=== PATIENT | female | born 2000 | race Caucasian/White ===

== ENCOUNTER 2020-04-18 15:44 | Emergency (ER) | payer SELFPAY ==
--- NOTE | 2020-04-18 17:11 | ER Document Report ---
ED Medical Screen (RME) - General Chief Complaint: Urinary Frequency Stated Complaint: ABDOMINAL PAIN,PAINFUL URINATION Time Seen by Provider: 04/18/20 17:10 Mode of Arrival: Ambulatory Information source: Patient Notes: 19-year-old female presented to ED for complaint of vaginal discharge, pelvic pain with intercourse, burning frequency and urgency with urination. She states this is been going on the vaginal discharge x3 days the burning frequency and urgency with urine x2 days. She states the pain with intercourse is getting worse over the last day or so. She states she has had 2 or 3 UTIs in the last year. She states she does not smoke drink or use any drugs. Patient has been given instructions for self swabbing for gonorrhea chlamydia and wet mount and instructions for obtaining a urinalysis. I have greeted and performed a rapid initial assessment of this patient. A comprehensive ED assessment and evaluation of the patient, analysis of test results and completion of medical decision making process will be conducted by an additional ED providers. - Related Data Allergies/Adverse Reactions: No Known Allergies Allergy (Verified 04/18/20 16:58) Past Medical History - Social History Drug Abuse: Marijuana Physical Exam - Vital signs Vitals: Temp Pulse Resp BP Pulse Ox 98.0 F 100 16 127/70 H 97 04/18/20 15:48 04/18/20 15:48 04/18/20 15:48 04/18/20 15:48 04/18/20 15:48 Course - Vital Signs Vital signs: Temp Pulse Resp BP Pulse Ox 98.0 F 100 16 127/70 H 97 04/18/20 15:48 04/18/20 15:48 04/18/20 15:48 04/18/20 15:48 04/18/20 15:48
[2020-04-18 17:35] LABS: APPEARANCE,URINE CLEAR; BACTERIA (WET MOUNT) 3+ BACTERIA SEEN; BILIRUBIN,URINE NEGATIVE (NEGATIVE); COLOR,URINE COLORLESS; EPITHELIALS (WET MOUNT) 3+ EPITHELIALS SEEN; GLUCOSE, URINE 50 mg/dL (NEGATIVE); KETONES,URINE NEGATIVE (NEGATIVE); LEUKOCYTE ESTERASE,URINE SMALL (NEGATIVE); NITRITE,URINE NEGATIVE (NEGATIVE); PROTEIN,URINE NEGATIVE (NEGATIVE); RBCS (WET MOUNT) FEW RBCS SEEN; T.VAGINALIS (WET MOUNT) NO TRICHOMONAS SEEN; URINE SPECIFIC GRAVITY 1.002; UROBILINOGEN,URINE NEGATIVE mg/dL (<2.0); WBCS (WET MOUNT) 1+ WBCS SEEN; YEAST (WET MOUNT) NO YEAST SEEN
[2020-04-18 19:04] LABS: CHLAM PCR NOT DETECTED (NOT DETECT)
--- NOTE | 2020-04-18 20:48 | ER Document Report ---
ED GI/ - General Chief Complaint: Urinary Frequency Stated Complaint: ABDOMINAL PAIN,PAINFUL URINATION Time Seen by Provider: 04/18/20 17:10 Mode of Arrival: Ambulatory Information source: Patient Notes: Patient is an otherwise healthy 19-year-old female presenting to the emergency department chief complaint of vaginal discharge pelvic pain and urinary frequency and urgency over the last 3 days. She reports increased vaginal discharge of the last 3 days that is burning her. She states she is having pain with intercourse. She reports she is , her last menstrual cycle was in January, she has had no care and is not sure how far along she is. She denies any vaginal bleeding, fevers, chills or abdominal pain. - Related Data Allergies/Adverse Reactions: No Known Allergies Allergy (Verified 04/18/20 16:58) Past Medical History - General Information source: Patient Last Menstrual Period: 01/21/2020 - Social History Smoking Status: Former Smoker Drug Abuse: Marijuana Family History: Reviewed & Not Pertinent Patient has homicidal ideation: No - Medical History Medical History: Negative Surgical Hx: Negative - Immunizations Immunizations up to date: Yes Review of Systems - Review of Systems Constitutional: denies: Chills, Fever EENT: No symptoms reported Cardiovascular: No symptoms reported Respiratory: No symptoms reported Gastrointestinal: No symptoms reported Genitourinary: Discharge, Frequency, Other - Pelvic pain Female Genitourinary: Vaginal discharge Musculoskeletal: No symptoms reported Skin: No symptoms reported Hematologic/Lymphatic: No symptoms reported Neurological/Psychological: No symptoms reported Physical Exam - Vital signs Vitals: Temp Pulse Resp BP Pulse Ox 98.0 F 100 16 127/70 H 97 04/18/20 15:48 04/18/20 15:48 04/18/20 15:48 04/18/20 15:48 04/18/20 15:48 - Notes Notes: PHYSICAL EXAMINATION: GENERAL: Well-appearing, well-nourished and in no acute distress. HEAD: Atraumatic, normocephalic. EYES: Pupils equal round and reactive to light, extraocular movements intact, conjunctiva are normal. ENT: Nares patent, oropharynx clear without exudates. Moist mucous membranes. NECK: Normal range of motion, supple without lymphadenopathy LUNGS: Breath sounds clear to auscultation bilaterally and equal. No wheezes rales or rhonchi. HEART: Regular rate and rhythm without murmurs ABDOMEN: Soft, nondistended abdomen. Mild suprapubic tenderness noted. No guarding, no rebound. No masses appreciated. Female : Patient refused pelvic exam Musculoskeletal: Normal range of motion, no pitting or edema. No cyanosis. NEUROLOGICAL: Cranial nerves grossly intact. Normal speech, normal gait. Normal sensory, motor exams PSYCH: Normal mood, normal affect. SKIN: Warm, Dry, normal turgor, no rashes or lesions noted. Course - Re-evaluation Re-evalutation: 04/18/20 21:07 Patient seen by me at 2049. Patient is declining pelvic exam stating that she was told by another provider that a pelvic exam was not necessary. She is also declining a transvaginal ultrasound due to the pain in the vaginal area. I explained to the patient that since she is and does not know how far along she is it is of the utmost importance that we confirm that the is in the uterus. Patient is agreeable to do a transabdominal ultrasound instead of a transvaginal ultrasound. Unfortunately patient has refused both pelvic exam and transvaginal ultrasound stating that she feels the pain would be unbearable. Patient has agreed to do a transabdominal ultrasound to at least determine the location of the . Transabdominal ultrasound was completed. See report. Patient will be diagnosed with bacterial vaginosis and urinary tract infection. She will be started on antibiotics for these. She will have close follow-up with [facility]. She states she is moving next week, she will establish care soon as she gets to [place]. Strict ED return precautions discussed. - Vital Signs Vital signs: Temp Pulse Resp BP Pulse Ox 98.3 F 64 14 100/64 100 04/18/20 22:18 04/18/20 22:18 04/18/20 22:18 04/18/20 22:18 04/18/20 22:18 - Laboratory Result Diagrams: 04/18/20 18:52 Laboratory results interpreted by me: 04/18/20 04/18/20 04/18/20 17:15 17:15 18:52 WBC 10.6 H Absolute Neuts (auto) 8.3 H Beta HCG, Quant Urine Glucose (UA) 50 H Urine Blood SMALL H Ur Leukocyte Esterase SMALL H Urine HCG, Qual POSITIVE H 04/18/20 18:52 WBC Absolute Neuts (auto) Beta HCG, Quant 00226.00 H Urine Glucose (UA) Urine Blood Ur Leukocyte Esterase Urine HCG, Qual Discharge - Discharge Clinical Impression: Bacterial vaginosis UTI (urinary tract infection) Qualifiers: Urinary tract infection type: site unspecified Hematuria presence: without hematuria Qualified Code(s): N39.0 - Urinary tract infection, site not specified Qualifiers: Weeks of gestation: 14 weeks Qualified Code(s): Z3A.14 - 14 weeks gestation of Condition: Stable Disposition: HOME, SELF-CARE Additional Instructions: Your work-up today shows that you are 14 weeks . Please establish care with a primary S[facility]IC[facility] HELPER as soon as you get to [place] next week. Please take antibiotics as prescribed for bacterial vaginosis and urinary tract infection. Urine culture is pending if there is any abnormality someone will call you. Return to the emergency department any new or worsening symptoms to include development of fever, vomiting or any other concerning symptom. Prescriptions: Cephalexin [Cephalexin 500 MG Tablet] 500 mg PO BID #14 tablet Metronidazole [Flagyl 500 mg Tablet] 500 mg PO BID #14 tablet
[2020-04-18 21:26] LABS: ABSOLUTE EOSINOPHILS # (AUTO) 0.1 10^3/uL (0.0-0.6); ABSOLUTE LYMPHOCYTES (AUTO) 1.5 10^3/uL (0.5-4.7); ABSOLUTE MONOCYTES (AUTO) 0.8 10^3/uL (0.1-1.4); ABSOLUTE NEUT (AUTO) 8.3 10^3/uL (1.7-8.2); BASOPHILS % (AUTO) 0.2 % (0-2); EOSINOPHILS % (AUTO) 0.5 % (0-6); HEMOGLOBIN 13.3 g/dL (12.0-15.5); LYMPHOCYTES % (AUTO) 14.1 % (13-45); MEAN CORPUSCULAR HEMOGLOBIN 30.4 pg (27.0-33.4); MEAN CORPUSCULAR VOLUME 87 fl (80-97); MONOCYTES % (AUTO) 7.5 % (3-13); PLATELET COUNT 242 10^3/uL (150-450); RED BLOOD COUNT 4.37 10^6/uL (3.72-5.28); SEGMENTED NEUTROPHILS % (AUTO) 77.7 % (42-78); TOTAL CELLS COUNTED % (AUTO) 100 %; WHITE BLOOD COUNT 10.6 10^3/uL (4.0-10.5)
[2020-04-18] MEDS ORDERED: METRONIDAZOLE 500 MG TABLET PO ONE (21:46)
[2020-04-18] MEDS ORDERED: CEPHALEXIN 500 MG CAPSULE PO ONE (21:46)
--- NOTE | 2020-04-18 21:47 | RADIOLOGY REPORT (SQ) ---
US PELVIS HISTORY: Pelvic pain. COMPARISON: None. TECHNIQUE: Grayscale, color Doppler, and spectral Doppler ultrasound images of the pelvis were obtained. FINDINGS: There is a single intrauterine gestation in vertex presentation. The placenta is posterior. heart rate is 155 bpm. Largest vertical pocket measures 2.4 x 5.9 cm. The cervix is 2.6 cm and is closed. Estimated gestational age is 14 weeks 2 days. The right ovary is not visualized. The left ovary is normal in size and contains color Doppler blood flow. IMPRESSION: Single live IUP as above.
[2020-04-18 22:21] VITALS: BP 100/64
== END 2020-04-18 22:19 | disposition home or self-care (01) ==
LOC: ER 15:44
DX: O23.42 Unspecified infection of urinary tract in pregnancy, second trimester (principal); O23.592 Infection of other part of genital tract in pregnancy, second trimester; B96.89 Other specified bacterial agents as the cause of diseases classified elsewhere; Z3A.14 14 weeks gestation of pregnancy
CPT/HCPCS: 36415; 76815; 81001; 81025; 84702; 85025; 87086; 87210; 87491; 87591; 99284

== ENCOUNTER 2020-04-29 16:47 | Emergency (ER) | payer SELFPAY ==
--- NOTE | 2020-04-29 17:15 | ER Document Report ---
ED Medical Screen (RME) - General Chief Complaint: Vaginal Discharge Stated Complaint: URINARY ISSUES Time Seen by Provider: 04/29/20 17:03 Mode of Arrival: Ambulatory Information source: Patient Notes: 19-year-old female presented to ED for complaint of vaginal discharge which is yellow with no odor. She states she was seen on 18 April and diagnosed with bacterial vaginosis and UTI. She was started on 2 antibiotics that I did see were Keflex and Flagyl. She states she felt like she had a reaction to these 2 medications but she does not know which one she had a racing heart nausea or di zziness she completed the medications. She states her mother told her that was very important to finish the medication so she did. She denied any swelling to the throat shortness of breath or difficulty swallowing speaking or breathing. 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 Patient is alert oriented respirations regular nonlabored speaking in full sentences. I have greeted and performed a rapid initial assessment of this patient. A comprehensive ED assessment and evaluation of the patient, analysis of test results and completion of medical decision making process will be conducted by an additional ED providers. - Related Data Allergies/Adverse Reactions: No Known Allergies Allergy (Verified 04/18/20 16:58) Past Medical History - Social History Chew tobacco use (# tins/day): No Frequency of alcohol use: None Drug Abuse: None - Immunizations Immunizations up to date: Yes Physical Exam - Vital signs Vitals: Temp Pulse Resp BP Pulse Ox 98.4 F 94 12 102/63 100 04/29/20 17:01 04/29/20 17:04/29/20 17:01 04/29/20 17:01 04/29/20 17:01 Course - Vital Signs Vital signs: Temp Pulse Resp BP Pulse Ox 98.4 F 94 12 102/63 100 04/29/20 17:01 04/29/20 17:01 04/29/20 17:01 04/29/20 17:01 04/29/20 17:01
[2020-04-29 17:55] LABS: AMORPHOUS SEDIMENT,URINE TRACE /HPF; APPEARANCE,URINE CLOUDY; BILIRUBIN,URINE NEGATIVE (NEGATIVE); COLOR,URINE YELLOW; GLUCOSE, URINE 50 mg/dL (NEGATIVE); KETONES,URINE NEGATIVE (NEGATIVE); LEUKOCYTE ESTERASE,URINE MODERATE (NEGATIVE); NITRITE,URINE NEGATIVE (NEGATIVE); PROTEIN,URINE NEGATIVE (NEGATIVE); URINE SPECIFIC GRAVITY 1.013; UROBILINOGEN,URINE NEGATIVE mg/dL (<2.0)
[2020-04-29 19:12] LABS: CHLAM PCR NOT DETECTED (NOT DETECT)
--- NOTE | 2020-04-29 20:31 | ER Document Report ---
HPI - HPI Patient complains to provider of: Vaginal discharge Time Seen by Provider: 04/29/20 19:03 Onset: Other - 2 weeks Onset/Duration: Persistent Pain Level: Denies Context: Patient is currently 15 weeks without any care. Patient is G1, P0. Patient reports vaginal discharge for the past 2 weeks. Patient denies any urinary symptoms. Patient states she was here recently and placed on antibiotics and she felt that she was having side effects to the medicines although not any allergic reaction to the medicines. Patient states that she did finish the course of antibiotics but still has vaginal discharge. Associated Symptoms: Other - Vaginal discharge. denies: Fever Exacerbated by: Denies Relieved by: Denies Similar symptoms previously: No Recently seen / treated by doctor: Yes - ROS ROS below otherwise negative: Yes Systems Reviewed and Negative: Yes All other systems reviewed and negative - CONSTITUTIONAL Constitutional: DENIES: Fever, Chills - URINARY Urinary: DENIES: Dysuria - REPRODUCTIVE Reproductive: REPORTS: :, Abnormal bleeding / discharge - MUSCULOSKELETAL Musculoskeletal: DENIES: Extremity pain - DERM Skin Color: Normal Skin Problems: None Past Medical History - General Information source: Patient - Social History Smoking Status: Never Smoker Chew tobacco use (# tins/day): No Frequency of alcohol use: None Drug Abuse: None Occupation: None Lives with: Friend Family History: Reviewed & Not Pertinent - Medical History Medical History: Negative Surgical Hx: Negative - Immunizations Immunizations up to date: Yes Vertical Provider Document - CONSTITUTIONAL Agree With Documented VS: Yes Exam Limitations: No Limitations General Appearance: WD/WN, No Apparent Distress - HEENT HEENT: Atraumatic, Normocephalic - NECK Neck: Normal Inspection, Supple. negative: Lymphadenopathy-Left, Lymphadenopathy-Right - RESPIRATORY Respiratory: Breath Sounds Normal, No Respiratory Distress - CARDIOVASCULAR Cardiovascular: Regular Rate, Regular Rhythm - GI/ABDOMEN Gastrointestinal: Abdomen Soft, Abdomen Non-Tender, No Organomegaly, Normal Bowel Sounds - REPRODUCTIVE Female Genitalia: Abnormal Inspection - Patient with mild erythematous, scaly well demarcated rash to the perianal and area surrounding vaginal introitus Notes: Attempted pelvic examination, patient reports discomfort and never previously having a pelvic exam performed. Patient declines having provider use speculum. Patient is agreeable with use of swab to obtain the wet prep. PCT Keke as standby - BACK Back: Normal Inspection. negative: CVA Tenderness-Right, CVA Tenderness-Left - MUSCULOSKELETAL/EXTREMETIES Musculoskeletal/Extremeties: MAEW - NEURO Level of Consciousness: Awake, Alert, Appropriate Motor/Sensory: No Motor Deficit - DERM Integumentary: Warm, Dry, Rash - See above Course - Re-evaluation Re-evalutation: 04/29/20 21:[address] cho regarding patient presentation and management. Recommends MetroGel as well as clotrimazole and treating the urine as well. Discussed with patient limitations of exam as she refuses to allow a pelvic examination be performed. Discussed plan of care with patient. Attempted to strongly encourage patient to follow-up with an [facility]ING HELPER to establish care. Discussed worsening symptoms that patient should return immediately for. Patient verbalized understanding and is agreeable with discharge plan of care. - Vital Signs Vital signs: Temp Pulse Resp BP Pulse Ox 98.4 F 94 12 102/63 100 04/29/20 17:01 04/29/20 17:01 04/29/20 17:01 04/29/20 17:01 04/29/20 17:01 - Laboratory Laboratory results interpreted by me: 04/29/20 17:15 Urine Glucose (UA) 50 H Ur Leukocyte Esterase MODERATE H Urine Ascorbic Acid 20 H 04/29/20 21:03 Labs- All tests 24 hr 04/29/20 04/29/20 04/29/20 17:13 17:15 20:19 Urine Color YELLOW Urine Appearance CLOUDY Urine pH 8.0 Ur Specific [place] 1.013 Urine Protein NEGATIVE Urine Glucose (UA) 50 H Urine Ketones NEGATIVE Urine Blood NEGATIVE Urine Nitrite NEGATIVE Urine Bilirubin NEGATIVE Urine Urobilinogen NEGATIVE Ur Leukocyte Esterase MODERATE H Urine WBC (Auto) 2 Urine RBC (Auto) 1 Squamous Epi Cells Auto <1 Amorphous Sediment Auto TRACE Urine Mucus (Auto) RARE Urine Ascorbic Acid 20 H Epi Cells (Wet Prep) 3+ EPITHELIALS SEEN Bacteria (Wet Prep) 3+ BACTERIA SEEN Trichomonas (Wet Prep) NO TRICHOMONAS SEEN Vaginal WBC 2+ WBCS SEEN Vaginal Yeast BUDDING YEAST SEEN Chlamydia DNA (PCR) NOT DETECTED N.gonorrhoeae DNA (PCR) NOT DETECTED Discharge - Discharge Clinical Impression: Vaginal discharge, Bacterial vaginosis, Yeast vaginitis Qualifiers: Weeks of gestation: 15 weeks Qualified Code(s): Z3A.15 - 15 weeks gestation of Condition: Stable Disposition: HOME, SELF-CARE Instructions: Nitrofurantoin ([facility]), Vaginal Yeast Infection ([facility]), Vaginosis, Bacterial ([facility]) Additional Instructions: Return immediately for any new or worsening symptoms Followup with your primary care provider, call tomorrow to make a followup appointment Follow-up with an [facility]ING HEL[facility] provider for further evaluation as well as care Prescriptions: Clotrimazole [Clotrimazole-7] 1 applic VG QHS #1 cream.appl Nitrofurantoin Monohyd/M-Cryst [Macrobid 100 mg Capsule] 100 mg PO BID #10 cap Metronidazole [Metrogel 0.75% Vaginal Gel] 1 applic PV DAILY #70 gm Ref[facility] - Follow up tomorrow
[2020-04-29 20:32] LABS: BACTERIA (WET MOUNT) 3+ BACTERIA SEEN; EPITHELIALS (WET MOUNT) 3+ EPITHELIALS SEEN; T.VAGINALIS (WET MOUNT) NO TRICHOMONAS SEEN; WBCS (WET MOUNT) 2+ WBCS SEEN; YEAST (WET MOUNT) BUDDING YEAST SEEN
[2020-04-29 21:49] VITALS: BP 98/63
== END 2020-04-29 21:49 | disposition home or self-care (01) ==
LOC: ER 16:47
DX: O23.592 Infection of other part of genital tract in pregnancy, second trimester (principal); B96.89 Other specified bacterial agents as the cause of diseases classified elsewhere; O98.812 Other maternal infectious and parasitic diseases complicating pregnancy, second trimester; B37.3 Candidiasis of vulva and vagina; Z3A.15 15 weeks gestation of pregnancy; O26.892 Other specified pregnancy related conditions, second trimester
CPT/HCPCS: 81001; 87086; 87210; 87491; 87591; 99283